=== PATIENT | male | born 1985 | race Two or more races ===

== ENCOUNTER 2024-06-18 12:41 | Emergency (ER) | payer BC, OTHER ==
[~2024-06-18] VITALS: Ht 195.6 cm; Wt 82.0 kg
[2024-06-18 13:21] VITALS: BP 128/78; PULSE 90; RESP 14; O2SAT 98
[2024-06-18 15:21] LABS: Basophils # (auto) 0 10 ^3/uL (0-0.2); Basophils % (auto) 0.4 % (0.0-2.0); Eosinophils # (auto) 0 10 ^3/uL (0-0.8); Eosinophils % (auto) 0.8 % (0.0-7.0); Hematocrit 47.6 % (41.0-53.0); Hemoglobin 16.2 g/dL (13.5-17.5); Lymphocytes # (auto) 0.9 10 ^3/uL (0.4-5.4); Lymphocytes % (auto) 21.5 % (10.0-50.0); Mean Corpuscular Hemoglobin 27.7 pg (28.0-32.0); Mean Corpuscular Volume 81.6 fL (80.0-100.0); Monocytes # (auto) 0.3 10 ^3/uL (0-1.3); Monocytes % (auto) 6.6 % (0.0-12.0); Neutrophils # (auto) 2.8 10 ^3/uL (1.6-8.6); Neutrophils % (auto) 70.7 % (37.0-80.0); Nucleated Red Blood Cells % 0.3 %; Platelet Count (auto) 86 10^3/uL (140-450); Red Blood Cells 5.83 10^6/uL (4.5-5.90); Red Cell Distribution Width 13.9 % (11.8-14.3)
[2024-06-18 15:30] LABS: Chloride 106 mmol/L (98-107); Potassium 3.9 mmol/L (3.5-5.1); Sodium 138 mmol/L (136-145)
[2024-06-18 15:31] LABS: Anion Gap 7 (5-15); Calcium 10.2 mg/dL (8.7-10.4); Carbon Dioxide 25 mmol/L (20-30)
[2024-06-18 15:36] LABS: BUN/Creatinine Ratio 16.5 (10.0-20.0); Blood Urea Nitrogen 13 mg/dL (9-23); Glucose 92 mg/dL (74-106)
[2024-06-18 18:30] LABS: Large Platelets FEW; Platelet Estimate Decreased; RBC Morphology Normal
== END 2024-06-18 17:49 | disposition home or self-care (01) ==
LOC: ER 12:41
DX: R06.02 Shortness of breath (principal); B34.9 Viral infection, unspecified
CPT/HCPCS: 36415; 71046; 80048; 85025; 93005